=== PATIENT | male | born 1960 | race Caucasian/White ===

== ENCOUNTER → 2020-09-14 | Outpatient (CLI) | payer BC ==
[~2020-09-14] MED LIST: PROTONIX40 MG PO
== END ==
LOC: HEART 5 09-13 08:30
DX: R00.2 Palpitations (principal)

== ENCOUNTER → 2020-10-10 | Outpatient (CLI) | payer BC | LOC: HEART 5 10-05 11:00 | DX: R07.89 Other chest pain (principal); R00.2 Palpitations; I35.8 Other nonrheumatic aortic valve disorders | CPT/HCPCS: 93306 ==